=== PATIENT | female | born 1965 | race Caucasian/White ===

== ENCOUNTER → 2016-09-07 | Outpatient (REF) | payer BC ==
[~2016-09-07] MED LIST: CENTTAB47 PO; SYNT50TA PO
== END ==
LOC: M SFHCWAGY 09:08
PROVIDERS: ATTEND Nurse Practitioner Women's Health
DX: Z12.4 Encounter for screening for malignant neoplasm of cervix (principal); N95.2 Postmenopausal atrophic vaginitis

== ENCOUNTER → 2017-09-28 | Outpatient (REF) | payer BC ==
[2017-09-30 14:49] LABS: HPV HYBRID CAPTURE II Negative (Negative)
== END ==
LOC: M SFHCWAGY 15:52
DX: Z01.419 Encounter for gynecological examination (general) (routine) without abnormal findings (principal); Z11.51 Encounter for screening for human papillomavirus (HPV); N95.2 Postmenopausal atrophic vaginitis

== ENCOUNTER → 2019-10-05 | Outpatient (REF) | payer BC | LOC: M SFHCWAGY 12:49 | PROVIDERS: ATTEND Nurse Practitioner Women's Health | DX: Z12.4 Encounter for screening for malignant neoplasm of cervix (principal) ==

== ENCOUNTER → 2022-03-01 | Outpatient (REF) | payer BC | LOC: M LAB REF 16:06 | PROVIDERS: ATTEND Physician Assistant Medical | DX: E03.9 Hypothyroidism, unspecified (principal); R53.83 Other fatigue ==

== ENCOUNTER → 2022-03-18 | Outpatient (REF) | payer BC | LOC: M SFHCWAGY 17:18 | PROVIDERS: ATTEND Advanced Practice Midwife | DX: Z01.419 Encounter for gynecological examination (general) (routine) without abnormal findings (principal); Z12.4 Encounter for screening for malignant neoplasm of cervix ==

== ENCOUNTER → 2022-04-05 | Outpatient (CLI) | payer BC | LOC: M WHC 09:40 | PROVIDERS: ATTEND Physician Assistant Medical | DX: E07.89 Other specified disorders of thyroid (principal) ==

== ENCOUNTER → 2022-05-06 | Outpatient (REF) | payer BC | LOC: M PLALAB 13:49 | PROVIDERS: ATTEND Advanced Practice Midwife | DX: L98.9 Disorder of the skin and subcutaneous tissue, unspecified (principal); R23.8 Other skin changes ==

== ENCOUNTER → 2023-04-22 | Outpatient (CLI) | payer BC | LOC: M WHC 15:30 | PROVIDERS: ATTEND Advanced Practice Midwife | DX: Z86.018 Personal history of other benign neoplasm (principal); N85.2 Hypertrophy of uterus ==